=== PATIENT | male | born 1965 | race Caucasian/White ===

== ENCOUNTER 2019-11-04 22:52 | Emergency (ER) | payer MEDICAID ==
[~2019-11-04] VITALS: Ht 190.5 cm; Wt 110.0 kg
[~2019-11-04 22:52] MED LIST: ALPR1TAB2 PO; CARI350T PO; CLIN-5 PO; HYDR-4383 PO
--- NOTE | 2019-11-05 00:38 | NUR ---
CALLED ATTIL[facility]P ABOUT NO CALL BACK FROM [facility] AT [phone]
--- NOTE | 2019-11-05 00:40 | NUR ---
[facility] CALLED BACK AT 0040. HEADING TO HOSPITAL NOW
[2019-11-05 01:40] VITALS: BP 98/58
[2019-11-05] MEDS ORDERED: aspirin 81mg tab.chew PO ONE (02:10)
== END 2019-11-05 02:28 | disposition home or self-care (01) ==
LOC: ER 22:54
DX: S92.332A Displaced fracture of third metatarsal bone, left foot, initial encounter for closed fracture (principal); G89.29 Other chronic pain; Z56.0 Unemployment, unspecified; Z98.890 Other specified postprocedural states; Z88.5 Allergy status to narcotic agent; Z88.6 Allergy status to analgesic agent; Z79.899 Other long term (current) drug therapy; W22.8XXA Striking against or struck by other objects, initial encounter; Y93.89 Activity, other specified; Y92.89 Other specified places as the place of occurrence of the external cause; Y99.9 Unspecified external cause status
CPT/HCPCS: 73590; 73610; 73630; 93971; 99284